=== PATIENT | male | born 1960 | race Caucasian/White ===

== ENCOUNTER 2024-07-17 07:52 | Day surgery (SDC) | payer OTHER ==
[~2024-07-17] VITALS: Ht 170.2 cm; Wt 82.6 kg
[~2024-07-17 07:52] MED LIST: ACYCLOVIR400 MG PO; AMARYL1 MG PO; BENICAR HCT1 TA2 PO; CHILD'S ASA81 MG PO; COZAAR25 MG PO; DEPO-TESTOS200 MG/M1 IM; FARXIGA10 MG PO; GLYBURIDE MICR1.5 MG PO; HYDROCHLOROT25 MG PO; KOMBIGLYZE1 TA1 PO; LOSARTAN POT25 MG PO; MEDDOSEPAK PO; METFORMIN HCL1000 MG PO; METFORMIN1000 MG PO; PAXLOVID PO; SIMVASTATIN40 MG PO; VIAGRA100 MG PO; ZOVIRAX800 MG PO; glucometer SC; lancets SC; test strips SC
[2024-07-17] MEDS ORDERED: SODIUM CHLORIDE 0.9% 1,000 ML IV ONE (07:57)
[2024-07-17] MEDS ORDERED: FAMOTIDINE 10MG/ML 2ML SDV IV ONE (07:57)
[2024-07-17 12:13] VITALS: BP 123/98
[2024-07-17] MEDS ORDERED: GLYCOPYRROLATE 0.2 MG/ML IV ONE (15:19)
[2024-07-17] MEDS ORDERED: LIDOCAINE HCL 2% 2ML SDV IV ONE (15:19)
[2024-07-17] MEDS ORDERED: PROPOFOL 200 MG/20 ML VIAL IV ONE (15:19)
== END 2024-07-17 10:40 | disposition home or self-care (01) | DRG 951 ==
LOC: ENDO 07:52 → ORM 08:00 → ENDO 08:00
PROVIDERS: ATTEND Surgery
PROC: 0DBK8ZX Excision of Ascending Colon, Via Natural or Artificial Opening Endoscopic, Diagnostic (ICD-10-PCS; principal; 2024-07-17)
PROC: 0DBL8ZX Excision of Transverse Colon, Via Natural or Artificial Opening Endoscopic, Diagnostic (ICD-10-PCS; 2024-07-17)
PROC: 0DBM8ZX Excision of Descending Colon, Via Natural or Artificial Opening Endoscopic, Diagnostic (ICD-10-PCS; 2024-07-17)
PROC: 0DBH8ZX Excision of Cecum, Via Natural or Artificial Opening Endoscopic, Diagnostic (ICD-10-PCS; 2024-07-17)
DX: Z12.11 Encounter for screening for malignant neoplasm of colon (principal); D12.4 Benign neoplasm of descending colon; D12.2 Benign neoplasm of ascending colon; D12.0 Benign neoplasm of cecum; K64.8 Other hemorrhoids; I10 Essential (primary) hypertension; E11.9 Type 2 diabetes mellitus without complications; E78.5 Hyperlipidemia, unspecified; Z79.84 Long term (current) use of oral hypoglycemic drugs; Z86.0100 Personal history of colon polyps, unspecified
CPT/HCPCS: J1596